=== PATIENT | male | born 1965 | race African-American/Black ===

== ENCOUNTER 2020-07-20 05:50 | Emergency (ER) | payer MEDICAID, OTHER ==
[~2020-07-20] VITALS: Ht 175.3 cm; Wt 64.0 kg
[2020-07-20] MEDS ORDERED: ONDANSETRON HCL 4MG/2ML INJ IV STA (06:33)
[2020-07-20] MEDS ORDERED: MORPHINE SULFATE 4 MG/ML CPJ (NOT FOR IM USE) IV STA (06:33)
[2020-07-20 06:53] LABS: CHLORIDE 98 mEq/L (98-107)
[2020-07-20 06:57] LABS: PROTHROMBIN TIME 10.5 sec (9.6-11.0)
[2020-07-20 07:01] LABS: MEAN CORPUSCULAR HEMOGLOBIN 32.5 pg (28.0-32.0); MEAN CORPUSCULAR VOLUME 92.9 fL (80.0-94.0); MEAN PLATELET VOLUME 8.3 fl (7.4-10.4); PLATELET 265 x1000/uL (130-400); RED BLOOD CELL COUNT 4.63 mill/uL (4.7-6.1); RED CELL DISTRIBUTION WIDTH 13.6 % (11.6-14.6)
[2020-07-20 07:50] LABS: ATYPICAL LYMPHOCYTES 1; PLATELET ESTIMATE NORMAL
[2020-07-20 08:20] LABS: CLARITY URINE CLEAR (CLEAR); COLOR URINE DARK YELLOW (YELLOW); KETONES URINE NEGATIVE (NEGATIVE); LEUKOCYTE ESTERASE URINE TRACE (NEGATIVE); NITRITE URINE NEGATIVE (NEGATIVE); OCCULT BLOOD URINE NEGATIVE (NEGATIVE); PH URINE 5.5 (4.5-8.0); PROTEIN URINE TRACE (NEGATIVE); SPECIFIC GRAVITY URINE 1.029 (1.005-1.030)
[2020-07-20 09:20] VITALS: BP 110/78
== END 2020-07-20 09:35 | disposition home or self-care (01) ==
LOC: ER 05:50
DX: R10.13 Epigastric pain (principal); R11.2 Nausea with vomiting, unspecified; R19.7 Diarrhea, unspecified; F17.210 Nicotine dependence, cigarettes, uncomplicated; Z71.6 Tobacco abuse counseling
CPT/HCPCS: 36415; 74176; 80053; 81003; 83690; 85025; 85610; 87635; 93005; 96374; 96375; 99285; 99406; J2270; J2405

== ENCOUNTER 2025-04-28 12:06 | Emergency (ER) | payer MEDICAID ==
[~2025-04-28] VITALS: Ht 177.8 cm; Wt 75.0 kg
[2025-04-28 12:11] VITALS: O2SAT 99
[2025-04-28] MEDS: KETOROLAC 30MG/ML VIAL IM ONE (13:30)
[2025-04-28 14:15] LABS: BASOPHILS % 0.5 % (0.0-2.0); EOSINOPHILS % 4.1 % (0.0-5.0); HEMATOCRIT. 44.8 % (42.0-52.0); HEMOGLOBIN. 14.7 g/dL (14.0-18.0); LYMPHOCYTES % 17.1 % (20.0-50.0); MEAN PLATELET VOLUME 7.9 fl (7.4-10.4); MONOCYTES % 9.6 % (2.0-8.0); NEUTROPHILS % 68.7 % (40.0-76.0); PLATELET 235 x1000/uL (130-400); RED BLOOD CELL COUNT 4.73 mill/uL (4.7-6.1); RED CELL DISTRIBUTION WIDTH 15.5 % (11.6-14.6)
[2025-04-28 14:24] LABS: INR 1.0
[2025-04-28 14:30] LABS: CREATININE 1.3 mg/dL (0.6-1.3)
[2025-04-28 14:31] LABS: UREA NITROGEN BLOOD 9 mg/dL (9-23)
[2025-04-28 14:32] LABS: ASPARTATE AMINOTRANSFERASE 27 IU/L (<34)
[2025-04-28 14:33] LABS: BILIRUBIN DIRECT 0.1 mg/dL (<=3.0); BILIRUBIN TOTAL 0.3 mg/dL (0.1-1.0); PROTEIN TOTAL 7.5 g/dL (6.0-8.3)
[2025-04-28] MEDS ORDERED: CEPH500T MT (15:13)
[2025-04-28] MEDS ORDERED: SULF1TAB48 MT (15:13)
[2025-04-28] MEDS ORDERED: BO1 TP (15:13)
[2025-04-28] MEDS ORDERED: BACITRACIN ZINC OINT UDPKT TOP ONE (15:30)
[2025-04-28 16:13] VITALS: BP 158/92; PULSE 82; RESP 20; TEMP 36.9; O2SAT 99
== END 2025-04-28 16:14 | disposition home or self-care (01) ==
LOC: ER 12:06
DX: I87.8 Other specified disorders of veins (principal); L03.115 Cellulitis of right lower limb
CPT/HCPCS: 80076; 80048; 85025; 85610; 36415; 93971; 96372; 99285; J1885; Z7610; A6449

== ENCOUNTER 2025-08-26 22:48 | Emergency (ER) | payer MEDICAID ==
[~2025-08-26 22:48] MED LIST: BO1 TP; CEPH500T MT; SULF1TAB48 MT
[2025-08-26 22:50] VITALS: PULSE 96; RESP 16; O2SAT 98
== END 2025-08-26 23:48 | disposition left against medical advice (07) ==
LOC: ER 22:48
DX: R21 Rash and other nonspecific skin eruption (principal)
CPT/HCPCS: 99281